=== PATIENT | female | born 1970 | race Caucasian/White ===

== ENCOUNTER 2019-01-22 14:01 | Emergency (ER) | payer SELFPAY ==
[~2019-01-22] VITALS: Ht 160 cm; Wt 98.9 kg
--- NOTE | 2019-01-22 15:29 | ED Fall/Injury ---
General Chief Complaint: General Problems/Pain Stated Complaint: FALL Nursing Triage Note: PT AMB TO TRIAGE WITH COMPLAINT OF LEFT SIDE PAIN. STATES SHE FELL OFF A 5 FOOT LADDER ON TUESDAY. STATES PAIN IS WHOLE LEFT SIDE. STATES HAS BEEN USING TYLENOL PM AND FOUR LOCOS FOR PAIN CONTROL AT HOME. Source: patient Exam Limitations: no limitations History of Present Illness Date Seen by Provider: Jan 22, 2019 Time Seen by Provider: 15:24 Initial Comments This 48-year-old white female presents to days after she fell off a ladder. Patient fell I feet landing on her left shoulder and hip area. The patient is complaining of pain primarily in the left shoulder she has been able to weight- bear but with discomfort. The patient also contused her chest. The patient is not having shortness of breath, hemoptysis, or chest wall instability. Patient denies significant trauma to her abdomen. Patient denies other injury interaction. Patient denies head or neck injury. Allergies and Home Medications Allergies Coded Allergies: No Known Drug Allergies (Unverified , 01/22/19) Patient Home Medication List Home Medication List Reviewed: Yes Review of Systems Review of Systems Constitutional: No chills, No fever Eyes: Denies Blurred Vision Ears, Nose, Mouth, Throat: denies ear pain Respiratory: see HPI; No cough Cardiovascular: see HPI, chest pain (from where the patient sustained a contusion on the left side.) Gastrointestinal: no symptoms reported Genitourinary: no symptoms reported Musculoskeletal: see HPI, joint pain (left shoulder and left hip) Skin: other (patient has ecchymosis over the) Psychiatric/Neurological: No Symptoms Reported Past Kdqrxsz-Wavhen-Nwlhje Hx Past Med/Social Hx: Reviewed Nursing Past Med/Soc Hx Patient Social History Alcohol Use: Denies Use Recreational Drug Use: No Smoking Status: Never a Smoker Recent Foreign Travel: No Contact w/Someone Who Travel: No Recent Infectious Disease Expo: No Recent Hopitalizations: No Immunizations Up To Date Tetanus Booster (TDap): Unknown PED Vaccines UTD: Yes Seasonal Allergies Seasonal Allergies: No Past Medical History Surgeries: Yes Abdominal, Appendectomy, Section Respiratory: No Cardiac: No Neurological: No Genitourinary: No Gastrointestinal: No Musculoskeletal: No Endocrine: No HEENT: No Cancer: No Psychosocial: No Integumentary: No Blood Disorders: No Physical Exam Vital Signs Vital Signs - First Documented 01/22/19 14:08 Temp 98.6 Pulse 64 Resp 17 B/P (MAP) 156/92 (113) Pulse Ox 97 O2 Delivery Room Air Capillary Refill : Less Than 3 Seconds Height, Weight, BMI Height: 5'3.00" Weight: 218lbs. oz. 98.424259qq; BMI Method:Stated General Appearance: WD/WN, no apparent distress HEENT: normal ENT inspection Neck: full range of motion Cardiovascular: regular rate, rhythm Respiratory: lungs clear, other (there is tenderness palpation over the area chest diffusely.) Gastrointestinal: normal bowel sounds Back: normal inspection Extremities: other (there is tenderness palpation of the left shoulder and left rib area) Neurologic/Psychiatric: no motor/sensory deficits, alert, normal mood/affect Skin: ecchymosis (over the left hip.) Himrod Coma Score Best Eye Response: (4) Open Spontaneously Best Verbal Response: (5) Oriented Best Motor Response: (6) Obeys Commands Janusz Total: 15 Progress/Results/Core Measures Results/Orders My Orders Orders - JANE SANTOS MD Shoulder, Left, 3 Views (01/22/19 15:21) Pelvis With Left Hip 2-3 Views (01/22/19 15:21) Chest Pa/Lat (2 View) (01/22/19 15:21) Fentanyl Injection (Sublimaze Injection (01/22/19 15:30) Medications Given in ED Current Medications Medications Dose Ordered Sig/Joe Route Start Time Stop Time Status Last Admin Dose Admin Fentanyl Citrate 50 mcg ONCE ONCE IVP 01/22/19 15:30 01/22/19 15:31 DC 01/22/19 15:52 50 MCG Vital Signs/I&O 01/22/19 14:08 Temp 98.6 Pulse 64 Resp 17 B/P (MAP) 156/92 (113) Pulse Ox 97 O2 Delivery Room Air Blood Pressure Mean: 113 Progress Progress Note : Time: 16:39 Progress Note Patient is given 50 g of fentanyl IM with significant improvement in her pain. Patient had no evidence of fracture or dislocation on radiographic evaluation of left shoulder chest and left hip and pelvis. I discussed findings with patient and family. Next I prescribed Vicodin and Flexeril for pain and spasm. I recommended limited activity with the left shoulder for the next 2-3 days and then a gradual initiation of gentle physical therapy to the joint. I asked her to call or return if any problems or questions. I recommend that she follow up with her caregiver choice in the next day or two Departure Impression Primary Impression: Fall Qualified Codes: W19.XXXA - Unspecified fall, initial encounter Additional Impression: Multiple contusions Disposition: 01 HOME, SELF-CARE Condition: Improved Departure-Patient Inst. Decision time for Depature: 16:41 Referrals: NO,LOCAL PHYSICIAN (PCP) Primary Care Physician [facility][1[facility]RICARDO Patient Instructions: Contusion (DC) Add. Discharge Instructions: Vicodin Flexeril. Ice and or heat to the shoulder and left hip. Follow-up with [facility] this week. Return if any problems or questions. All discharge instructions reviewed with patient and/or family. Voiced understanding. Scripts Hydrocodone Bit/Acetaminophen (Hydrocodone/Acetaminophen 5/325mg Tablet) 1 Tab Tab 1-2 EACH PO Q6H PRN for PAIN-MODERATE MDD 10 for 3 Days, #20 TAB 0 Refills Prov: JANE SANTOS MD 01/22/19 Cyclobenzaprine HCl (Cyclobenzaprine HCl) 10 Mg Tablet 10 MG PO TID for Spasms, #20 TAB Prov: JANE SANTOS MD 01/22/19 JANE SANTOS MD Jan 22, 2019 15:29
[2019-01-22] MEDS ORDERED: fentaNYL INJECTION 100 MCG/2 ML AMP IVP ONE (15:30)
--- NOTE | 2019-01-22 16:28 | Diagnostic Imaging Report ---
INDICATION: Fall, chest and shoulder injury COMPARISON: None. FINDINGS: Frontal and lateral views the chest demonstrate clear lungs bilaterally. The heart size is normal. There is no pneumothorax. Osseous structures are normal. IMPRESSION: No acute findings. Normal chest. Dictated by: Dictated on workstation # [id number]
--- NOTE | 2019-01-22 16:30 | Diagnostic Imaging Report ---
INDICATION: Fall, hip and pelvic injury. COMPARISON: None. FINDINGS: Single view of the pelvis and two views of the left hip demonstrate no acute fracture or dislocation. Articular surfaces are age appropriate. No osseous lesion is seen. IMPRESSION: No fracture or dislocation. Dictated by: Dictated on workstation # [id number]
[2019-01-22] MEDS ORDERED: CYCL10TA9 PO (16:44)
[2019-01-22] MEDS ORDERED: ACHD5005 PO (16:44)
[2019-01-22 16:51] VITALS: BP 156/92
--- NOTE | 2019-01-22 16:53 | Diagnostic Imaging Report ---
INDICATION: Fall, left shoulder injury. COMPARISON: None. FINDINGS: Three views of the left shoulder demonstrate no fracture or dislocation. Articular surfaces are age appropriate. No osseous lesion is seen. IMPRESSION: No fracture or dislocation. Dictated by: Dictated on workstation # [id number]
== END 2019-01-22 16:51 | disposition home or self-care (01) ==
LOC: EDUNIT# 14:01 → ER 14:03
DX: S40.012A Contusion of left shoulder, initial encounter (principal); S20.212A Contusion of left front wall of thorax, initial encounter; R40.2142 Coma scale, eyes open, spontaneous, at arrival to emergency department; R40.2252 Coma scale, best verbal response, oriented, at arrival to emergency department; R40.2362 Coma scale, best motor response, obeys commands, at arrival to emergency department; Z90.49 Acquired absence of other specified parts of digestive tract; W11.XXXA Fall on and from ladder, initial encounter
CPT/HCPCS: 71046; 73030; 96372